=== PATIENT | female | born 1955 | race Caucasian/White ===

== ENCOUNTER → 2020-10-31 | Day surgery (SDC) | payer OTHER ==
[~2020-10-31] MED LIST: ESTRACE1 MG PO; NP THYROID30 MG PO
== END | disposition home or self-care (01) ==
LOC: OR 07:19 → EDBD 07:19 → OR 08:00
DX: K21.9 Gastro-esophageal reflux disease without esophagitis (principal); K64.0 First degree hemorrhoids; K59.09 Other constipation; E03.9 Hypothyroidism, unspecified; Z79.899 Other long term (current) drug therapy
CPT/HCPCS: J1170; J2405; J2704; J3010; J7040